=== PATIENT | male | born 1970 | race Caucasian/White ===

== ENCOUNTER 2018-10-16 08:48 | Inpatient (IN) | payer BC ==
[~2018-10-16] VITALS: Ht 167.6 cm; Wt 90.7 kg
[2018-10-16] VITALS (33 sets, daily range): BP systolic 100–133; BP diastolic 49–94
--- NOTE | ~2018-10-16 | H ---
[address] [address] HISTORY AND PHYSICAL Name: AMEYA POLANCO Room: [address]#: [id number] Admission: 10/16/18 Attend Phys: Sergio Rosas MD, Discharge: 10/17/18 Date of : 70 Report #: [id number] THIS REPORT FOR: //name// For History and Physical please refer to the consultation note in the patient's medical record. By: 1200Medical Records Staff JOCELINE /IRENE
--- NOTE | ~2018-10-16 | CON ---
[address] [address] CONSULTATION Name: AMEYA POLANCO Room: [address] IN M.R.#: [id number] Admission: 10/16/18 Attend Phys: Sergio Rosas MD, Discharge: Date of : 70 Report #: [id number] THIS REPORT FOR: //name// CC: Inna Rosas DATE OF SERVICE: 10/16/2018 CARDIOLOGY CONSULTATION Thank you for allowing us to see the patient in cardiovascular assessment. HISTORY OF PRESENT ILLNESS: As you know, he is a pleasant 47-year-old male with a history of prior coronary stenting done remotely at [facility]. He has a significantly positive family history of coronary artery disease as well as tobacco use, currently estimated at 1 pack per day as well as hyperlipidemia. He has been statin intolerant in the past with significant side effects and discontinued that as well as all other cardiac medications. For the past 3 days, he has noted waxing and waning of chest discomfort. This a.m. at approximately 0800, he developed central chest pain, which persisted and he sought assistance in the [facility] Emergency Room. The pain persisted and EKG suggested acute inferoposterior injury and I was asked to see the patient. Pain persisted at the time of my evaluation, as did the electrocardiographic changes. The patient received heparin and aspirin. Beta blockade and nitrites were held by virtue of low normal systemic pressure. PAST MEDICAL HISTORY: Remarkable for tobacco habituation. ALLERGIES: SHELLFISH ALLERGY. SOCIAL HISTORY: The patient smokes 1 pack per day. He is . FAMILY HISTORY: Remarkable for multiple first-degree relatives with premature coronary artery disease, hyperlipidemia. PHYSICAL EXAMINATION: GENERAL: Demonstrates an acutely distressed middle-aged male. VITAL SIGNS: Blood pressure 105/70, pulse rate 68, respirations 18 per minute. NECK: Jugular venous pressure is normal. CHEST: Clear. CARDIAC: Reveals normal first and second heart sounds with an S4 gallop. ABDOMEN: [place] [address] CONSULTATION Name: AMEYA POLANCO Room: [address]#: [id number] Admission: 10/16/18 Attend Phys: Sergio Rosas MD, Discharge: Date of : 70 Report #: [id number] EXTREMITIES: Reveal intact femoral, pedal and radial pulses. EKG reveals acute inferoposterior injury with ST-segment elevation myocardial infarction. IMPRESSION: 1. Acute inferoposterior ST-segment elevation myocardial infarction. 2. Coronary artery disease, status post remote stenting. 3. Hyperlipidemia. 4. Tobacco habituation. 5. Positive family history of premature coronary artery disease. RECOMMENDATIONS: Given the aforementioned clinical scenario, I would recommend emergent catheterization with strong consideration of percutaneous coronary intervention contingent on results of the study. Procedure and risks have been discussed with the patient. Critical care time is 35 minutes, from 10:20 to 10:55. By: 1059 [id number] Rosas MD, [facility] /nt
--- NOTE | ~2018-10-16 | EKG ---
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
[~2018-10-16 08:48] MED LIST: ADULT LOW DOSE81 MG; AMBEREN; FISHOIL; NOHOMEMEDICATIONS; SIMCOR 1,000-41 EACH
[2018-10-16 09:05] LABS: ABSOLUTE BASOPHILS 0.1 thou/uL (0.0-0.2); ABSOLUTE EOSINOPHILS 0.2 thou/uL (0.0-0.7); ABSOLUTE LYMPHOCYTES 2.7 thou/uL (0.8-5.3); ABSOLUTE MONOCYTES 0.9 thou/uL (0.0-1.2); ABSOLUTE NEUTROPHILS 8.1 thou/uL (1.6-8.1); BASOPHILS 1.2 %; EOSINOPHILS 1.3 %; HEMATOCRIT 47.3 % (42.0-52.0); LYMPHOCYTES 22.6 %; MCH 30.7 pg (26.0-34.0); MCHC 33.9 g/dL (28.0-37.0); MCV 90.7 fL (80.0-100.0); MONOCYTES 7.8 %; MPV 7.4 fl. (7.2-11.1); NUCLEATED RBCS 0 /100WBC; PLATELET COUNT* 366 thou/uL (150-400); POLYS 67.1 %; RBC 5.21 mil/uL (4.50-6.00); RDW-CV 12.9 % (10.5-14.5)
[2018-10-16 09:16] LABS: ANION GAP 15 mmol/L (7-16); BUN 19 mg/dL (7-18); CALCIUM 9.5 mg/dL (8.5-10.1); CHLORIDE 100 mmol/L (98-107); CO2 23 mmol/L (21-32); CREATININE 1.1 mg/dL (0.6-1.3); GLUCOSE 185 mg/dL (70-99); POTASSIUM 3.8 mmol/L (3.5-5.1); SODIUM 138 mmol/L (136-145)
[2018-10-16 09:18] LABS: APTT 30.3 Seconds (25.0-31.3)
[2018-10-16 09:26] LABS: ALBUMIN 3.7 g/dL (3.4-5.0); ALKALINE PHOSPHATASE 98 U/L (46-116); LIPASE 115 U/L (73-393); NT-PRO BRAIN NAT PEPTIDE 19 pg/mL (<300); SGOT 15 U/L (15-37); SGPT 43 U/L (30-65); TOTAL BILIRUBIN 0.8 mg/dL (<0.1-1.0); TOTAL PROTEIN 7.7 g/dL (6.4-8.2); TROPONIN-I LEVEL <0.06 ng/mL (<0.06)
--- NOTE | 2018-10-16 11:30 | CARD ---
[address] [address] CARDIAC CATH REPORT Name: AMEYA POLANCO Room: [address] IN [facility].#: [id number] Admission: 10/16/18 Attend Phys: Sergio Rosas MD, Discharge: Date of : 70 Report #: [id number] THIS REPORT FOR: //name// APPROVED REPORT Study performed: 10/16/2018 09:47:58 Patient Details Patient Status: ED Room #: The patient is a 47 year-old male Event Personnel Ann-Marie Lee RN RN, Aldair Patiño (R) Krysta Ling Angela Monitor, Holkins, John Electrician Helper Procedures Performed Art Access - R femoral artery* Left Heart Cath w/or w/o Coronaries [id number] [facility] JUANITA Revasc AMI Total/Sub Single CIRC C9606 AMIREVSING , PTCA with Stenting Indication STEMI Risk Factors Family History, Hypercholesterolemia, Tobacco History () Admission/Lab Medications/Medications given during procedure Aspirin, Platelet Aff. Inhib., Angiomax bolus and infusion Procedure Narrative The patient was brought emergently to the Cardiac Catheterization Laboratory and was prepped and draped in a sterile manner. The right femoral was infiltrated with 2% Lidocaine subcutaneous anesthesia. A Alda 6 FR sheath was inserted into the right femoral artery. Coronary angiography was performed using coronary diagnostic catheters. The right coronary system was accessed and visualized with a Diagnostic catheter. The left coronary system was accessed and visualized with a Diagnostic catheter. The left ventricle was accessed and visualized with a Diagnostic catheter. Left ventricular/Aortic Valve gradient assessed via catheter pullback. Left ventriculogram was performed in MAHMOOD projection. Pre-demployment femoral angiogram was performed . Closure device was deployed with a 6 Fr Angioseal STS 6Fr. The patient tolerated the procedure well and there were no complications associated with the [place] [address] CARDIAC CATH REPORT Name: AMEYA POLANCO Room: [address] IN ..#: [id number] Admission: 10/16/18 Attend Phys: Sergio Rosas MD, Discharge: Date of : 70 Report #: [id number] no hematoma. Intraoperative Conscious Sedation Sedation start time: 952 Case end Time: 1025 Fentanyl 25 mcg Versed 2 mg Fluoro Time: 9.5 minutes Dose: 2105.15 2105.15 mGy Contrast Type and Amount: Visipaque 450 ml Coronary Angiography The patient's coronary anatomy is right dominant. Diagnostic Cath Left Main 0% narrowing LAD 40% proximal and mid LAD narrowing Circumflex 95% proximal circumflex stenosis with prominent intraluminal thrombus and TIMI2-3 flow to the distal vessel Right Coronary Dominant vessel with 90% proximal occlusion 100% mid vessel occlusion with recanalization to faintly fill the distal right coronary artery in antegrade fashion with odsh-vo-fuzml collaterals also filling the distal right coronary artery Left Ventriculography The left ventricle is normal in size with normal contractility. The left ventricular ejection fraction is estimated to be 60%. Left ventricular wall motion abnormalities are not present. There is no mitral insufficiency. Hemodynamics The aortic pressure is 113/68 mmHg with a mean of 56 mmHg. The left ventricular pressure is 104/4 mmHg with a mean of mmHg. The left ventricular end diastolic pressure is 19 mmHg. There was no gradient across the aortic valve upon pullback. PCI Technique Lesion Anticoagulation was achieved with Angiomax. Patient was preloaded with Angiomax IV 13.5 ml. Percutaneous coronary intervention was performed on the proximal circumflex artery segment. The lesion stenosis prior to intervention was 95% with SHASTA 2 flow. A 6F XB LAD 3.5 Guide Catheter was used to engage the ostium. A IG: ProwaterFlex 180CM Interventional Guidewire was used to cross the lesion. BALLOON DILATION A Balloon catheter Trek RX 2.5 X 12 was [place] [address] CARDIAC CATH REPORT Name: AMEYA POLANCO Room: [address] IN [facility]#: [id number] Admission: 10/16/18 Attend Phys: Sergio Rosas MD, Discharge: Date of : 70 Report #: [id number] 14.00atm for 8seconds. Additional Inflation: 16.00atm for 8seconds. STENT DEPLOYMENT A drug-eluting stent Xience Ashley 2.12M06wm was inserted and inflated up to 12.00atm for 11seconds. Additional Inflation: 16.00atm for 7seconds. Additional Inflation: 18.00atm for 8seconds. Additional Inflation: 19.00 bonnie for 8 seconds. Additional Inflation: 20.00 bonnie for 8 seconds. POST STENT DEPLOYMENT BALLOON DILATION A Balloon catheter NC Trek RX 3.0 X 12 was inserted and inflated up to 16.00atm for 9seconds. Additional Inflation: 17.00atm for 5seconds. Final angiography reveals 0 % stenosis with SHASTA 3 flow. Conclusion #1 significant multivessel coronary arteries characterized by the following: A 40% proximal and mid LAD narrowings B 100% chronic total occlusion of the mid right coronary artery with recanalization to faintly fill the distal right coronary artery in antegrade fashion and with rhbl-ch-gomvn collaterals filling the distal right coronary artery as well C prominent though nondominant circumflex with 95% proximal occlusion with prominent intraluminal thrombus and SHASTA 2 flow to the distal vessel #2 moderate elevation of left ventricular end-diastolic pressure at rest #3 successful percutaneous coronary intervention with deployment of drug-eluting stent in the proximal circumflex with that 0% residual narrowing following stent deployment no residual thrombus and SHASTA-3 flow to the distal vessel #4 normal left ventricular systolic function, estimate ejection fraction being 60% Recommendations [place] [address] CARDIAC CATH REPORT Name: AMEYA POLANCO Room: [address]#: [id number] Admission: 10/16/18 Attend Phys: Sergio Rosas MD, Discharge: Date of : 70 Report #: [id number] Aggressive Medical Therapy Medications Administered Aspirin (any) Prasugrel Cardiac Rehabilitation Referral Smoking Cessation Diagnostic Cath Approved by: Sergio Rosas MD Date/Time: 10/16/2018 11:28:59 <ELECTRONICALLY SIGNED> By: Sergio Rosas MD, FACC 10/16/18 1130 1130 1130Sergio Rosas MD, FACC /INF
--- NOTE | 2018-10-16 11:31 | NUR ---
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 PT DROWSEY BUT EASILY AWAKENS. ACCESS SITE TO R GROIN C/D/I. NO HEMATOMA. HISTORY AND ASSESSMENT COMPLETE. DENIES PAIN.
--- NOTE | 2018-10-16 11:40 | EKG ---
[place] [address] ELECTROCARDIOGRAM REPORT Name: AMEYA POLANCO Room: [address] IN M.R.#: [id number] Admission: 10/16/18 Attend Phys: Sergio Rosas MD, Discharge: Date of : 70 Report #: [id number] THIS REPORT FOR: //name// [facility] ED Test Date: 2018-10-16 Test Time: 08:50:53 Pat Name: AMEYA POLANCO Department: Room: 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1970 Requested By: Linda Chua Order Number: [id number] MD: Boris Vazquez Measurements Intervals [place] Rate: 67 P: 34 [place]: 139 QRS: 68 QRSD: 110 T: 35 QT: 376 QTc: 397 Interpretive Statements Sinus rhythm Probable inferior infarct, recent Posterior infarct, acute (LCx) ST depression V1-V3, suggest recording posterior leads Compared to ECG 03/18/2015 04:21:02 Myocardial infarct finding now present ST (T wave) deviation now present Sinus bradycardia no longer present Sinus arrhythmia no longer present Electronically Signed On 10-16-2018 11:40:46 CDT by Boris Vazquez [email or web address] <ELECTRONICALLY SIGNED> By: Boris Vazquez MD, [facility] 10/16/18 1140 0850 0850 Boris Vazquez MD, [facility] /EPI
--- NOTE | 2018-10-16 17:17 | NUR ---
PT RESTING COMFORTABLY. IVF INFUSING. ANGIOMAX STOPPED AT [address] OLIVEIRA ORDER. OP SITE BANDAGE C/D/I. DENIES PAIN. PROGRESSING TOWARDS GOALS.
[2018-10-17] VITALS (13 sets, daily range): BP systolic 95–129; BP diastolic 46–73
[2018-10-17 04:31] LABS: HEMATOCRIT 40.7 % (42.0-52.0); MCH 30.3 pg (26.0-34.0); MCV 91.6 fL (80.0-100.0); MPV 7.8 fl. (7.2-11.1); RBC 4.44 mil/uL (4.50-6.00); RDW-CV 13.3 % (10.5-14.5); WBC 15.2 thou/uL (4.0-11.0)
[2018-10-17 04:40] LABS: HEMOGLOBIN 13.4 gm/dL (14.0-18.0)
[2018-10-17 04:45] LABS: ALBUMIN 3.1 g/dL (3.4-5.0); ALKALINE PHOSPHATASE 78 U/L (46-116); ANION GAP 11 mmol/L (7-16); BUN 16 mg/dL (7-18); CHLORIDE 105 mmol/L (98-107); CHOLESTEROL 235 mg/dL (<200); CO2 22 mmol/L (21-32); CREATININE 0.9 mg/dL (0.6-1.3); GLUCOSE 214 mg/dL (70-99); HDL CHOLESTEROL 26 mg/dL (>40); LDL CHOLESTEROL 156 mg/dL (<100); POTASSIUM 4.4 mmol/L (3.5-5.1); SGOT 19 U/L (15-37); SGPT 34 U/L (30-65); SODIUM 138 mmol/L (136-145); TOTAL BILIRUBIN 0.4 mg/dL (<0.1-1.0); TOTAL PROTEIN 6.6 g/dL (6.4-8.2); TRIGLYCERIDE 268 mg/dL (<150); VLDL 54 mg/dL (<40)
[2018-10-17 04:46] LABS: SERUM ASSESSMENT Slight Lipemia
[2018-10-17 04:48] LABS: TROPONIN-I LEVEL 2.88 ng/mL (<0.06)
--- NOTE | 2018-10-17 05:41 | NUR ---
PT. HAS REMAINED CHEST PAIN FREE OVERNIGHT. UP AD JASON INDEPENDENTLY. IVF TO KVO. URINAL TO VOID. SINUS RHYTHM WITH WNL BP'S. RIGHT GROIN SITE REMAINS CLEAN/DRY/INTACT. PT. IS VERY MUCH READY TO BE DISCHARGED HOME. CALL LIGHT IN REACH, WILL CONTINUE TO MONITOR.
--- NOTE | 2018-10-17 11:40 | EKG ---
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 : 1970 Requested By: Sergio Rosas Order Number: [id number] MD: Juanito Trejo Measurements Intervals [place] Rate: 68 P: 38 [place]: 160 QRS: 47 QRSD: 93 T: 51 QT: 401 QTc: 427 Interpretive Statements Sinus rhythm Compared to ECG 10/16/2018 08:50:53 Myocardial infarct finding no longer present ST (T wave) deviation no longer present Electronically Signed On 10-17-2018 11:39:49 CDT by Juanito Trejo [email or web address] <ELECTRONICALLY SIGNED> By: Juanito Trejo MD, [facility] 10/17/18 1139 1214 1214 Juanito Trejo MD, [facility] /EPI
--- NOTE | 2018-10-17 11:44 | EKG ---
[place] [address] ELECTROCARDIOGRAM REPORT Name: AMEYA POLANCO Room: [address] ADM IN M.R.#: [id number] Admission: 10/16/18 Attend Phys: Sergio Rosas MD, Discharge: Date of : 70 Report #: [id number] THIS REPORT FOR: //name// 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[facility] : 1970 Requested By: Sergio Rosas Order Number: [id number] Reading MD: Juanito Trejo Measurements Intervals [place] Rate: 62 P: 41 [place]: 160 QRS: 55 QRSD: 102 T: 26 QT: 446 QTc: 453 Interpretive Statements Sinus rhythm Borderline T wave abnormalities Compared to ECG 10/16/2018 08:50:53 no change Electronically Signed On 10-17-2018 11:44:16 CDT by Juanito Trejo [email or web address] <ELECTRONICALLY SIGNED> By: Juanito Trejo MD, [facility] 10/17/18 1144 0747 0747 Juanito Trejo MD, [facility] /EPI
[2018-10-17] MEDS ORDERED: ASPIR 8181 M1 PO (13:42)
[2018-10-17] MEDS ORDERED: CARVEDILOL3.125 MG PO (13:44)
[2018-10-17] MEDS ORDERED: LISINOPRIL2.5 M1 PO (13:46)
[2018-10-17] MEDS ORDERED: EFFIENT10 MG PO (13:49)
--- NOTE | 2018-10-17 14:49 | NUR ---
PATIENT ALERT AND ORIENTED X4. VSS. NO SOAKAGE OR HEMATOMA AT RT GROIN CATH SITE. NO CHEST PAIN. PT AMBULATORY. DISCHARGE EDUCATION PROVIDED.
== END 2018-10-17 14:15 | disposition home or self-care (01) | DRG 247 ==
LOC: M.ERS 08:48 → M.TBA-CV 09:51 → M.ICU 09:51 → M.ERS 09:55 → M.ICU 10:53
PROVIDERS: Personal Emergency Response Attendant; ADMIT Internal Medicine
PROC: B41G1ZZ Fluoroscopy of Left Lower Extremity Arteries using Low Osmolar Contrast (ICD-10-PCS; principal; 2018-10-16)
PROC: 4A023N7 Measurement of Cardiac Sampling and Pressure, Left Heart, Percutaneous Approach (ICD-10-PCS; principal; 2018-10-16)
PROC: B41F1ZZ Fluoroscopy of Right Lower Extremity Arteries using Low Osmolar Contrast (ICD-10-PCS; principal; 2018-10-16)
PROC: 027034Z Dilation of Coronary Artery, One Artery with Drug-eluting Intraluminal Device, Percutaneous Approach (ICD-10-PCS; principal; 2018-10-16)
PROC: B2111ZZ Fluoroscopy of Multiple Coronary Arteries using Low Osmolar Contrast (ICD-10-PCS; principal; 2018-10-16)
PROC: B2151ZZ Fluoroscopy of Left Heart using Low Osmolar Contrast (ICD-10-PCS; principal; 2018-10-16)
DX: I21.3 ST elevation (STEMI) myocardial infarction of unspecified site (principal); F41.9 Anxiety disorder, unspecified; F17.210 Nicotine dependence, cigarettes, uncomplicated; E78.5 Hyperlipidemia, unspecified; I25.10 Atherosclerotic heart disease of native coronary artery without angina pectoris; Z91.013 Allergy to seafood; Z82.49 Family history of ischemic heart disease and other diseases of the circulatory system; Z91.19 Patient's noncompliance with other medical treatment and regimen